=== PATIENT | female | born 1955 | race Caucasian/White ===

== ENCOUNTER → 2019-02-15 10:44 | Outpatient (CLI) | payer SELFPAY ==
--- NOTE | 2019-02-15 11:15 | BRBX_PTH ---
PATIENT: NEVIN GRAY LOC: [facility] U#:[id number] AGE/SX: 69/F ROOM: RE02/15/[address]: Dr. Inna Tobias MD : [id number] BED: DIS: SPEC #: [id number] RECD: 02/15/19 11:59 STATUS: GRIFFIN REQ #: [id number] LEXIE: 02/15/19 11:[address]: Inna Tobias DEPT: SURGICAL PATHOLOGY RECD BY: Christopher Wynn ENTERED: 02/15/19 12:53 SP TYPE: BREAST BX OTHR DR: Dr. Jamal Huffman MD Tissues: Right breast, NOS Procedures: Surgery Specimen Level IV HEADER OPERATION: Right breast stereotactic biopsy PRE-OP DIAGNOSIS: Right breast 11 o'clock posterior depth microcalcifications TISSUE SUBMITTED: Right breast tissue ISCHEMIC TIME: 1 minute FIXATION TIME: 8 hours MICROSCOPIC DIAGNOSIS Right breast, 11 o'clock posterior depth microcalcifications, stereotactic core biopsy: Hyalinized fibroadenoma with focal calcifications. Negative for atypia or malignancy. CHANDANA:senthil 02/16/19 COMMENT Correlation with clinical, radiologic findings and appropriate follow up are necessary. Please make reference to previous specimen ([id number]) left breast, mastectomy, with diagnosis of ductal carcinoma in situ. MICROSCOPIC DESCRIPTION Slides are reviewed. GROSS DESCRIPTION Received is one container labeled with the patient's name and not further designated. The specimen consists of multiple elongated fragments of block-yellow fibroadipose tissue that in aggregate measure 5 x 3 x 0.3 cm. The entire specimen is submitted in two cassettes. / CHANDANA:senthil 02/15/19 TC:1 CPT: 04870
--- NOTE | 2019-02-19 09:44 | OP.PCM_ITS ---
Report of Operation Date of Procedure: 02/15/19 Pre-Operative Diagnosis: abnormal calcifications on right breast mammograms Post-Operative Diagnosis: same Surgery/Procedure Performed:: right stereotactic breast biopsy Description of Surgical Findings:: abnormal calcifications in right breast mammograms Type of Anesthesia:: Local - 1% xylocaine Specimen's removed: right breast tissue Estimated Blood Loss (mL): minimal Description of Procedure: After informed consent was given, the patient was brought into the breast biopsy suite. Appropriate time out protocol was followed. She was then placed in the prone position on the stereotactic biopsy table. The patient?s right breast was then placed in the opening at the head of the table. A pick up and delivery driver compression mammogram was then obtained in the lateral view. The suspicious radiological lesion was then identified. Stereo pictures of the lesion were then taken for XYZ coordinates. The Mammotome biopsy stylus was then positioned where it would be entering into the patient?s breast. The skin at this site was then cleansed with a surgical skin preparation. The skin and subcutaneous tissues at this site were then infiltrated with 1% xylocaine. A small skin incision was made with an 11 blade scalpel. The biopsy stylus was then positioned into the patient?s breast at the proper coordinates of depth. Using the Mammotome vacuum-assist device, several core samples of breast tissue were obtained. A specimen mammogram was the obtained and revealed that the calcifications were within the specimen. A hemostatic marker clip was then placed into the biopsy cavity and a pick up and delivery driver film revealed that it was properly deployed. The patient was then placed in the supine position and pressure was applied to the breast until no active bleeding was noted. Steristrips were applied to reapproximate the skin. A unilateral mammogram in the CC and MLO view were then taken which revealed that the marker clip was in the same area as the previous suspicious lesion. The patient tolerated the procedure well and was discharged from the breast biopsy suite in good condition. - Complications none noted
== END ==
PROVIDERS: Family Provider Family Medicine; PCP Family Medicine; Referring Provider Surgery; Visit Provider Surgery
DX: D24.1 Benign neoplasm of right breast (principal); Z85.3 Personal history of malignant neoplasm of breast; E11.9 Type 2 diabetes mellitus without complications; I10 Essential (primary) hypertension; E78.5 Hyperlipidemia, unspecified; Z87.440 Personal history of urinary (tract) infections; Z79.1 Long term (current) use of non-steroidal anti-inflammatories (NSAID); Z79.4 Long term (current) use of insulin; Z79.899 Other long term (current) drug therapy
CPT/HCPCS: 19081; 88305; J7050; A4648

== ENCOUNTER → 2020-01-15 09:13 | Outpatient (CLI) | payer MEDICARE, OTHER, SELFPAY ==
--- NOTE | 2020-01-15 10:00 | RAD_ITS ---
PROCEDURE: Fluoroscopic guided Hip Injection DATE: 01/15/2020. INDICATION: Female, 64 years old. Chronic left hip pain. PHYSICIAN: Dez Sahu M.D. MEDICATIONS: 12 mg of CELESTONE and 3 cc of 1% LIDOCAINE. 2% lidocaine administered subcutaneously for local anesthesia. ACCESS SITE: Left hip. NEEDLE: 22-gauge spinal needle. FLUOROSCOPY TIME (if supplied): (0:06) minutes/seconds FINDINGS: The risks, benefits, and alternatives to the procedure were explained to the patient. The specific risks of bleeding, infection, and neurovascular injury were detailed and accepted. Witnessed informed consent was obtained. A 22-gauge spinal needle was positioned under radiographic fluoroscopic localization. Approximately 2 cc of ISOVUE-300 instilled for localization purposes. Medication was then injected. The patient tolerated the procedure well without any immediate complications. RAD/Inj/Asp Chicho Jt Should/Hip/Knee IMPRESSION: 1. Successful fluoroscopic guided hip injection. Electronically Signed: Dez Sahu, at 12:51 EST , Service support ,
== END ==
PROVIDERS: PCP Family Medicine; Referring Provider Orthopaedic Surgery; Visit Provider Orthopaedic Surgery
DX: M25.552 Pain in left hip (principal); M16.12 Unilateral primary osteoarthritis, left hip; G89.29 Other chronic pain
CPT/HCPCS: 20610; 77002; Q9967; J0702

== ENCOUNTER → 2024-01-25 | Outpatient (CLI) | payer MEDICARE, OTHER, SELFPAY ==
[2024-01-25 16:25] LABS: CRP < 2.90 mg/L (0.0-3.0)
[2024-01-31 13:08] LABS: Endomysial Antibody IgA Negative (Negative); Immunoglobulin A 263 mg/dL (87-352); t-Transglutaminase IgA <2 U/mL (0-3)
== END | disposition home or self-care (01) ==
LOC: MTLAB 11:07
PROVIDERS: PCP Family Medicine; Referring Provider Internal Medicine Gastroenterology; Visit Provider Internal Medicine Gastroenterology
DX: R19.7 Diarrhea, unspecified (principal)
CPT/HCPCS: 36415; 82784; 83516; 86140; 86255